=== PATIENT | female | born 1950 | race African-American/Black ===

== ENCOUNTER → 2017-02-28 | Outpatient (CLI) | payer MEDICARE, BC ==
[~2017-02-28] MED LIST: ASCO1TAB15 PO; AZIT250T89 PO; AZIT500T77 PO; DICY10CA3 PO; ESTR1PAT10 TD; HERB1CAP PO; OM-31CAP4 PO; OXYC-302 PO; PRED10TA PO; PSYL174P2 PO; RIVA10TA PO; SPIR25TA3 PO; VALS80TA3 PO; [UNRECOGNIZED DRUG - CODE] PO; [UNRECOGNIZED DRUG - OTHER] PO
== END | disposition home or self-care (01) ==
LOC: CFH 08:58
PROVIDERS: ATTEND Registered Nurse Registered Nurse First Assistant
DX: R51 Headache (principal)
CPT/HCPCS: 70450

== ENCOUNTER → 2017-03-16 | Outpatient (CLI) | payer MEDICARE, BC | END | disposition home or self-care (01) | LOC: CFH 06:56 | PROVIDERS: ATTEND Internal Medicine Gastroenterology | DX: R10.13 Epigastric pain (principal); Z90.49 Acquired absence of other specified parts of digestive tract | CPT/HCPCS: 76700 ==

== ENCOUNTER → 2017-06-29 | Outpatient (CLI) | payer MEDICARE, BC ==
[~2017-06-29] MED LIST changes: +AZIT500T5 PO; -AZIT500T77 PO; +OMNIPAQUE 350 MG/ML, 75ML BOTTLE ONE
[2017-06-29 12:58] LABS: HEMATOCRIT 46.1 % (34.6-47.8); WHITE BLOOD COUNT 4.7 x10^3/uL (3.4-10)
[2017-06-29 13:23] LABS: ASPARTATE AMINO TRANSFERASE 22 U/L (15-37); BLOOD UREA NITROGEN 10 mg/dL (7-18)
== END | disposition home or self-care (01) ==
LOC: CFH 09:49
PROVIDERS: ATTEND Internal Medicine
DX: R91.1 Solitary pulmonary nodule (principal); J92.9 Pleural plaque without asbestos; N28.1 Cyst of kidney, acquired; K76.0 Fatty (change of) liver, not elsewhere classified; D73.89 Other diseases of spleen; I10 Essential (primary) hypertension
CPT/HCPCS: 36415; 71260; 80053; 80061; 84443; 85025; Q9967

== ENCOUNTER → 2017-07-18 | Outpatient (CLI) | payer MEDICARE, BC ==
[~2017-07-18] MED LIST changes: -OMNIPAQUE 350 MG/ML, 75ML BOTTLE ONE
== END | disposition home or self-care (01) ==
LOC: CFH 09:02
PROVIDERS: ATTEND Family Medicine
DX: Z12.31 Encounter for screening mammogram for malignant neoplasm of breast (principal); Z80.3 Family history of malignant neoplasm of breast
CPT/HCPCS: 77063; G0202

== ENCOUNTER 2019-11-27 22:20 | Emergency (ER) | payer MEDICARE, BC ==
[~2019-11-27] VITALS: Ht 167.6 cm; Wt 72.3 kg
[~2019-11-27 22:20] MED LIST changes: +AZIT500T10 PO; -AZIT500T5 PO; -RIVA10TA PO; +RIVA10TA2 PO; -SPIR25TA3 PO; +SPIR25TA5 PO
[2019-11-27] MEDS ORDERED: OLME20TA17 PO (22:41)
[2019-11-27 22:42] VITALS: BP 150/80
--- NOTE | 2019-11-27 22:43 | NUR ---
FIRST CONTACT WITH PT. PT AMBULATED STEADILY TO ROOM FROM TRIAGE WITH TECH. NAD NOTED. PT PWD. PT REPORTS SUDDEN ONSET PALPITATIONS AND HR OF 160 PER WATCH. ONSET WHILE SITTING IN BED WATCHING TV. PT STATES FEELING TIRED WITH ONSET. S/S SINCE RESOLVED. HX OF HTN AND BBB. BP/SPO2/ECG MONITORING IN PLACE. IRREGULAR SINUS W/ BBB NOTED ON MONITOR. HR 74-96. PT DENIES CP/SOB/DIZZINESS/WEAKNESS/NAUSEA. ERP AT BEDSIDE FOR INITIAL ASSESSMENT. AWAITING ORDERS.
[2019-11-27 23:10] LABS: ALBUMIN 3.8 g/dL (3.4-5.0); ANION GAP 6 mmol/L (5-15); BASOPHILS # (AUTO) 0.02 x10^3/uL (0-0.1); BASOPHILS % (AUTO) 1 % (0-1); CALCIUM 9.1 mg/dL (8.5-10.1); CHLORIDE 107 mmol/L (98-107); CREATININE 0.87 mg/dL (0.55-1.02); EOSINOPHILS # (AUTO) 0.11 x10^3/uL (0-0.4); EOSINOPHILS % (AUTO) 3 % (1-7); LYMPHOCYTES # (AUTO) 1.76 x10^3/uL (1-3.4); LYMPHOCYTES % (AUTO) 47 % (22-44); MD NO; MEAN CORPUSCULAR HEMOGLOBIN 27.7 pg (27.0-34.8); MEAN CORPUSCULAR HGB CONC 32.4 g/dL (32.4-35.8); MEAN CORPUSCULAR VOLUME 85.5 fL (80-100); MONOCYTES # (AUTO) 0.34 x10^3/uL (0.2-0.8); MONOCYTES % (AUTO) 9 % (2-9); NEUTROPHILS # (AUTO) 1.52 x10^3/uL (1.8-6.8); NEUTROPHILS % (AUTO) 41 % (42-75); PLATELET COUNT 182 x10^3/uL (130-400); RED CELL DISTRIBUTION WIDTH 14.9 % (9.6-15.2)
[2019-11-27 23:14] LABS: TROPONIN I < 0.015 ng/mL (0.000-0.045)
--- NOTE | 2019-11-27 23:30 | NUR ---
PT AMBULATED STEADILY TO BATHROOM WO ASSISTANCE. PT DENIES DIZZINESS/WEAKNESS/PALPITATIONS WITH ACTIVITY
--- NOTE | 2019-11-28 00:12 | NUR ---
DC EDUCATION PROVIDED, PT DEMONSTRATES UNDERSTANDING. PT AMBUALTED STEADILY TO DC WITH RN AND SON. SON TO TRANSPORT PT HOME.
== END 2019-11-28 00:30 | disposition home or self-care (01) ==
LOC: ED 11-28 00:09
DX: I45.10 Unspecified right bundle-branch block (principal); I44.5 Left posterior fascicular block; I10 Essential (primary) hypertension; Z87.891 Personal history of nicotine dependence
CPT/HCPCS: 36415; 71045; 80048; 82040; 83735; 84443; 84484; 85025; 93005; 99284

== ENCOUNTER → 2020-12-02 | Outpatient (CLI) | payer MEDICARE, BC ==
[~2020-12-02] MED LIST changes: +OLME20TA17 PO; -OXYC-302 PO; +OXYC1TAB14 PO
== END | disposition home or self-care (01) ==
LOC: CFH 12:17
PROVIDERS: ATTEND Internal Medicine
DX: Z12.31 Encounter for screening mammogram for malignant neoplasm of breast (principal)
CPT/HCPCS: 77063; 77067

== ENCOUNTER 2021-06-26 13:31 | Outpatient (CLI) | payer MEDICARE, BC ==
[~2021-06-26 13:31] MED LIST changes: +OXYC1TAB12 PO; -OXYC1TAB14 PO
[2021-06-26 13:56] LABS: BASOPHILS % (AUTO) 1 % (0-1); EOSINOPHILS % (AUTO) 2 % (1-7); LYMPHOCYTES % (AUTO) 34 % (22-44); MEAN CORPUSCULAR HEMOGLOBIN 27.7 pg (27.0-34.8); MEAN CORPUSCULAR HGB CONC 32.6 g/dL (32.4-35.8); MEAN PLATELET VOLUME 8.4 fL (7.4-10.4); MONOCYTES % (AUTO) 7 % (2-9); NEUTROPHILS % (AUTO) 56 % (42-75); PLATELET COUNT 214 x10^3/uL (130-400); RED CELL DISTRIBUTION WIDTH 14.8 % (9.6-15.2)
[2021-06-26 14:09] LABS: ALANINE AMINOTRANSFERASE 22 U/L (12-78); ALBUMIN 4.2 g/dL (3.4-5.0); ANION GAP 5 mmol/L (5-15); CALCIUM 9.9 mg/dL (8.5-10.1); CHLORIDE 106 mmol/L (98-107); CREATININE 0.82 mg/dL (0.55-1.02)
[2021-06-26 14:11] LABS: ALKALINE PHOSPHATASE 93 U/L (45-117); BILIRUBIN,TOTAL 1.4 mg/dL (0.2-1.0)
== END 2021-06-26 23:59 | disposition home or self-care (01) ==
LOC: LAB 13:31
PROVIDERS: ATTEND Internal Medicine
DX: R19.4 Change in bowel habit (principal); R10.9 Unspecified abdominal pain
CPT/HCPCS: 36415; 80053; 85025

== ENCOUNTER 2021-06-26 14:12 | Outpatient (CLI) | payer MEDICARE, BC ==
[2021-06-26] MEDS ORDERED: OMNIPAQUE 350 MG/ML, 100ML BOTTLE ONE (15:15)
== END 2021-06-26 23:59 | disposition home or self-care (01) ==
LOC: CFH 14:12
PROVIDERS: ATTEND Internal Medicine
DX: I87.8 Other specified disorders of veins (principal); R10.9 Unspecified abdominal pain; R19.4 Change in bowel habit
CPT/HCPCS: 74177; Q9967; 36415; 80053; 85025

== ENCOUNTER 2021-07-07 09:43 | Outpatient (CLI) | payer MEDICARE, BC | END 2021-07-07 23:59 | disposition home or self-care (01) | LOC: CFH 09:43 | PROVIDERS: ATTEND Obstetrics & Gynecology | DX: N64.4 Mastodynia (principal) | CPT/HCPCS: 76642; 77061; 77065; G0279 ==